=== PATIENT | female | born 2000 | race African-American/Black ===

== ENCOUNTER 2021-07-04 04:49 | Day surgery (SDC) | payer OTHER ==
[2021-07-04 05:15] VITALS: BMI 33.7
[2021-07-04] MEDS ORDERED: hydrALAZINE 20 MG/ML VIAL SLOW IVP PRN (07:15)
== END 2021-07-04 07:30 | disposition home or self-care (01) ==
LOC: CSHLD/OP 04:49
PROVIDERS: ATTEND Obstetrics & Gynecology
DX: O47.1 False labor at or after 37 completed weeks of gestation (principal); O26.893 Other specified pregnancy related conditions, third trimester; R10.2 Pelvic and perineal pain; O99.283 Endocrine, nutritional and metabolic diseases complicating pregnancy, third trimester; E86.0 Dehydration; Z3A.39 39 weeks gestation of pregnancy